=== PATIENT | male | born 1965 | race Caucasian/White ===

== ENCOUNTER 2017-08-12 00:02 | Emergency (ER) | payer BC ==
[2017-08-12 00:12] VITALS: BP 150/94; PULSE 122; O2SAT 97
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
[2017-08-12 01:09] LABS: Amphetamine,Urine NEGATIVE (NEGATIVE); Barbiturate,Urine NEGATIVE (NEGATIVE); Benzodiazepine,Urine NEGATIVE (NEGATIVE); Cocaine,Urine NEGATIVE (NEGATIVE); Methadone,Urine NEGATIVE (NEGATIVE); Opiate,Urine NEGATIVE (NEGATIVE); PCP,Urine NEGATIVE (NEGATIVE); THC,Urine NEGATIVE (NEGATIVE)
[2017-08-12] MEDS ORDERED: Adacel Vial IM ONE ×2 (01:54→01:57)
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
== END 2017-08-12 02:11 | disposition home or self-care (01) ==
LOC: ED 00:02
DX: S00.03XA Contusion of scalp, initial encounter (principal); S16.1XXA Strain of muscle, fascia and tendon at neck level, initial encounter; R51 Headache; M54.2 Cervicalgia; V89.0XXA Person injured in unspecified motor-vehicle accident, nontraffic, initial encounter
CPT/HCPCS: 36415; 70450; 72125; 80302; 80307; 90471; 90715; 99281; 99284; G0480